=== PATIENT | female | born 1950 ===

== ENCOUNTER → 2018-08-20 | Emergency (ER) | payer OTHER ==
[~2018-08-20] VITALS: Ht 162.6 cm; Wt 80.7 kg
[~2018-08-20] MED LIST: ATENOLOL25 MG; MEDROL4 MG PO; METOPROLOL SUCC50 MG
== END | disposition home or self-care (01) ==
LOC: ER 09:49
DX: H11.33 Conjunctival hemorrhage, bilateral (principal)